=== PATIENT | male | born 1960 ===

== ENCOUNTER 2018-08-19 17:04 | Emergency (ER) | payer MEDICARE | END 2018-08-19 21:56 | disposition home or self-care (01) | LOC: C.ER 17:04 | DX: I10 Essential (primary) hypertension (principal) ==

== ENCOUNTER 2018-08-22 13:01 | Emergency (ER) | payer MEDICARE ==
[2018-08-22 13:46] VITALS: RESP 20; O2SAT 98
--- NOTE | 2018-08-22 14:55 | C.PDOC ---
History Of Present Illness 58 y/o male,w/PMhx of HTN, presents to the ER complaining of dizziness which began yesterday. Patient states that he checked his bp at home and he became very anxious. Patient reports that he noticed the bp was elevated. He notes that he has good compliance with Bisoprolol 10 mg daily.Patient is also complaining of fullness in right ear canal and nasal congestion.Denies having fever,chills, headache,CP,SOB, nausea, and vomiting. Time Seen by Provider: 08/22/18 14:40 Chief Complaint (Nursing): Dizziness/Lightheaded History Per: Patient History/Exam Limitations: no limitations Onset/Duration Of Symptoms: Days Current Symptoms Are (Timing): Still Present Severity: Moderate Past Medical History Reviewed: Historical Data, Nursing Documentation, Vital Signs Vital Signs: Last Vital Signs Temp 98.5 F 08/22/18 13:44 Pulse 55 L 08/22/18 13:44 Resp 20 08/22/18 13:44 BP 154/91 H 08/22/18 13:44 Pulse Ox 98 08/22/18 13:44 Primary Care Provider: Jossue Nichols - Medical History PMH: Asthma, HTN Surgical History: Appendectomy (1984) Family History: States: No Known Family Hx - Social History Hx Alcohol Use: No Hx Substance Use: No - Immunization History Hx Tetanus Toxoid Vaccination: No Hx Influenza Vaccination: No Hx Pneumococcal Vaccination: No Review Of Systems Except As Marked, All Systems Reviewed And Found Negative. Constitutional: Negative for: Fever, Chills Gastrointestinal: Negative for: Nausea, Vomiting, Abdominal Pain Neurological: Positive for: Dizziness. Negative for: Headache Physical Exam - Physical Exam Appears: Non-toxic, No Acute Distress Skin: Normal Color, Warm, Dry Head: Atraumatic, Normacephalic Eye(s): bilateral: Normal Inspection Ear(s): Left: Normal, Right: TM Obscured By Wax Nose: No Discharge, Other (moderate to severe nasal passage erythema (R>L) with kissing turbinates) Oral Mucosa: Moist Throat: Normal, No Erythema, No Exudate Neck: Supple Chest: Symmetrical Cardiovascular: Rhythm Regular Respiratory: Normal Breath Sounds, No Rales, No Rhonchi, No Wheezing Gastrointestinal/Abdominal: Normal Exam, Soft, No Tenderness, No Guarding, No Rebound Neurological/Psych: Oriented x3, Normal Speech ED Course And Treatment O2 Sat by Pulse Oximetry: 98 (RA) Pulse Ox Interpretation: Normal Medical Decision Making Medical Decision Making: normal BP control good compliance with new Bisoprolol 10 mg daily instructed to get rid of home BP cuff Seasonal allergies Nasal congestion provokes sinus pressure and dizziness (NOT elevated BP) Flonase/Claritin R ear wax impacted Debrox Disposition Doctor Will See Patient In The: Office Counseled Patient/Family Regarding: Studies Performed, Diagnosis - Disposition Referrals: Jossue Nichols MD [Medical Doctor] - Disposition: HOME/ ROUTINE Disposition Time: 14:54 Condition: GOOD Additional Instructions: BP Sigue [place] Bispoprolol diario Allergias de la tempor[place] Claritin 10 mg diario Flonase espray 1 espray cada lado del nariz cada 12 horas Ceda en el canal del oido Debrox gotas: 3 gotas cada otra noche en los os oidos Instructions: Seasonal Allergies in Adults, Ear Wax Impaction Forms: [employer] (Cym[employer]) Print Language: CZECH - Clinical Impression Clinical Impression: Dizziness, Impacted ear wax - Scribe Statement The provider has reviewed the documentation as recorded by the Scribe Matthew Espana Provider Attestation: All medical record entries made by the Scribe were at my direction and personally dictated by me. I have reviewed the chart and agree that the record accurately reflects my personal performance of the history, physical exam, medical decision making, and the department course for this patient. I have also personally directed, reviewed, and agree with the discharge instructions and disposition.
[2018-08-22 15:07] VITALS: BP 144/82; PULSE 56; TEMP 98.2
== END 2018-08-22 15:05 | disposition home or self-care (01) ==
LOC: C.ER 13:01
DX: R42 Dizziness and giddiness (principal); H61.21 Impacted cerumen, right ear